=== PATIENT | male | born 1975 | race Caucasian/White ===

== ENCOUNTER → 2019-12-28 10:44 | Outpatient (CLI) | payer OTHER, SELFPAY ==
--- NOTE | 2019-12-28 10:49 | RAD_ITS ---
HISTORY: lumbar strain EXAMINATION/TECHNIQUE: XR Spine Lumbar Min 4 Views: 5 views COMPARISON: None FINDINGS: VERTEBRAE: Preserved vertebral body height. No fracture. No spondylolisthesis. No spondylolysis Degenerative changes of the posterior elements. Preservation of the normal lumbar lordosis. DISCS: Degenerative changes are noted. INCLUDED ABDOMEN: Included bowel gas pattern is non-obstructive. Atherosclerotic vascular disease RAD/L/S Spine Min 4 Views IMPRESSION: Degenerative changes. No acute fracture or spondylolisthesis. No spondylolysis at 0441 Reported and signed by: Charlotte Alexis DO Electronically Signed: Charlotte Alexis DO at 4:40 EDT Tel , Service support ,
== END ==
PROVIDERS: PCP Family Medicine; Referring Provider Family Medicine; Visit Provider Family Medicine
DX: S39.012A Strain of muscle, fascia and tendon of lower back, initial encounter (principal)
CPT/HCPCS: 72110

== ENCOUNTER → 2020-01-20 08:52 | Outpatient (CLI) | payer OTHER, SELFPAY ==
[2020-01-20 10:03] LABS: Absolute Lymphocyte Count 1.66 X10^3/uL (0.83-4.51); Absolute Neutrophil Count 6.8 X10^3/uL (2.0-7.7); Basophil# 0.03 X10^3/uL; Basophil% 0.3 % (0-1); Eosinophil# 0.19 X10^3/uL; Hematocrit 46.8 % (40-54); Hemoglobin 15.2 g/dL (13.0-16.5); Lymphocyte # 1.66 X10^3/ul (4.0); Lymphocyte % 17.7 % (19-41); Mean Corp Hgb Conc 32.5 g/dL (32-36); Mean Corpuscular Hgb 31.1 pg (27.0-32.0); Mean Corpuscular Volume 95.9 fL (80-94); Monocyte# 0.65 X10^3/uL; Monocyte% 6.9 % (0-10); NRBC Flagged by Analyzer 0 % (0-5); Neutrophil % 72.7 % (47-70); Platelet Count 286 K/mm3 (150-450); RBC Distribution Width CV 12.3 % (11.6-14.6); RBC Distribution Width SD 43.4 fl (35.1-43.9); Red Blood Count 4.88 M/mm3 (4.6-6.2); White Blood Count 9.4 K/mm3 (4.4-11.0)
[2020-01-20 10:48] LABS: AST(SGOT) 14 U/L (15-37); Alanine Aminotransfer ALT/SGPT 19 U/L (16-61); Albumin, Serum 3.9 g/dL (3.2-5.0); Alkaline Phosphatase 68 U/L (45-117); Anion Gap 7 (5-15); BUN 9 mg/dL (7-18); BUN/Creat Ratio 8.5 RATIO (10-20); Chloride 105 mmol/L (98-107); Cholesterol 210 mg/dL (200); Creatinine, Serum 1.06 mg/dL (0.70-1.30); EST Glomerular Filtration Rate 80 mL/min (>60); Est Glom Filt Rate - Afr Amer 96 mL/min (>60); Globulin 3.8 g/dL (2.2-4.2); Glucose 96 mg/dL (74-106); High Density Lipoprotein 48 mg/dL; Potassium 4.2 mmol/L (3.5-5.1); Protein, Total 7.7 g/dL (6.4-8.2); Sodium Level 139 mmol/L (136-145); Thyroid Stim Hormone (TSH) 0.98 uIU/mL (0.358-3.74); Triglycerides 107 mg/dL; Very Low Density Lipoprotein 21 mg/dL (5-40)
== END ==
PROVIDERS: PCP Family Medicine; Referring Provider Family Medicine; Visit Provider Family Medicine
DX: F98.8 Other specified behavioral and emotional disorders with onset usually occurring in childhood and adolescence (principal); F17.210 Nicotine dependence, cigarettes, uncomplicated; Z13.220 Encounter for screening for lipoid disorders
CPT/HCPCS: 36415; 80053; 80061; 84443; 85025

== ENCOUNTER 2021-06-01 15:54 | Outpatient (CLI) | payer OTHER, SELFPAY ==
--- NOTE | 2021-06-01 | IMM_PTH ---
PATIENT: ANA THIBODEAUX LOC: [facility] U#:[id number] AGE/SX: 46/M ROOM: RE06/01/[address]: Dr. Sergo Harley MD : 1975 BED: DIS: 06/01/2021 SPEC #: [id number] RECD: 06/05/21 14:05 STATUS: EVI RECali #: [id number] BERNICE: 06/01/21 00:[address]: Sergo Harley DEPT: IMMUNOHISTOCHEMISTRY RECD BY: Christel Del Toro ENTERED: 06/05/21 14:09 SP TYPE: IMMUNO OTHR DR: Dr. Jean Arthur MD Tissues: Skin of neck, NOS Procedures: BCL-2 (add) P53 (add) 34BE12 (add) P40 (add) CD10 (initial) PHYSICIAN & INSTITUTION [place] [phone] SPECIMEN INFORMATION: Tissue Source: Left lateral neck skin lesion Clinical Info: Left lateral neck skin lesion Specimen Number: [id number] CPT code: 12070, 00381 x4 METHODOLOGY: Deparaffinized sections of prefer/formalin-fixed tissue or PAP/DQ stained slides are incubated with monoclonal/polyclonal antibodies/oligonucleotide probes. Localization is made via biotin free immunoperoxidase method. Appropriate controls are performed and reacted as expected. Results on target cell population are indicated in the following table: RESULTS: ANTIBODY / CLONE RESULT CD10 (56C6) negative BCL-2 (bcl-2/100/D5) positive, dim P40 (BC28) positive 34BE12 (34BE12) positive P53 (DO-7) positive, rare These tests were developed and their performance characteristics determined by [facility]. They may not have been cleared or approved by the U.S. Food and Drug Administration. The FDA has determined that such clearance or approval is not necessary. The above immunohistochemical/dualISH markers are ordered and reviewed by the Pathologist. INTERPRETATION: Left lateral neck skin lesion, punch biopsy: Consistent with basosquamous carcinoma. AM:gillian 06/06/2021
--- NOTE | 2021-06-01 14:25 | LES_PTH ---
PATIENT: ANA THIBODEAUX LOC: [facility] U#:[id number] AGE/SX: 46/M ROOM: RE06/01/[address]: Dr. Sergo Harley MD : 1975 BED: DIS: 06/01/2021 SPEC #: [id number] RECD: 06/01/21 15:49 STATUS: EVI BRYAN #: [id number] BERNICE: 06/01/21 14:[address]: Sergo Harley DEPT: SURGICAL PATHOLOGY RECD BY: Twila Corrigan ENTERED: 06/04/21 08:35 SP TYPE: Lesion OTHR DR: Dr. Jean Arthur MD Tissues: Skin of neck, NOS Procedures: Surgery Specimen Level IV HEADER OPERATION: Punch biopsy skin lesion left lateral neck PRE-OP DIAGNOSIS: Left lateral neck skin lesion TISSUE SUBMITTED: Left lateral neck skin lesion MICROSCOPIC DIAGNOSIS Skin lesion left lateral neck, punch biopsy: Consistent with invasive baso-squamous cell carcinoma, ulcerated. See comment. AM:gillian 06/05/2021 COMMENT Immunohistochemistry ([id number]) supports the above diagnosis. Complete excision of lesion is recommended for definitive classification. MICROSCOPIC DESCRIPTION Slides are reviewed. GROSS DESCRIPTION Received in fixative is one container labeled with the patient's name and designated skin lesion biopsy left neck. The specimen consists of a punch biopsy of serrano-white skin measuring 0.5 cm in diameter and 0.4 cm in length. The entire specimen is submitted in one cassette. / SJ:gillian 06/04/2021 TC:0 CPT: 99020
== END 2021-06-01 23:59 | disposition home or self-care (01) ==
LOC: LABSPEC 15:56
PROVIDERS: PCP Family Medicine; Visit Provider Surgery
DX: L98.9 Disorder of the skin and subcutaneous tissue, unspecified (principal)
CPT/HCPCS: 88305; 88341; 88342

== ENCOUNTER 2021-06-18 12:25 | Day surgery (SDC) | payer OTHER, SELFPAY ==
--- NOTE | 2021-06-18 10:52 | HP.PCM_ITS ---
History and Physical Date of Admission: 06/18/21 HISTORY OF PRESENT ILLNESS 46 year old man presents a lesion on his left posterolateral neck that has been increasing in size over the last several months and has become ulcerated. He denies trauma. He denies fever. He denies any drainage from this ulcerated lesion. The lesion was punch biopsied by Dr. Harley on 06/01/21. 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 Patient has a family history of skin cancer. He also has concerns about a small darkly pigmented lesion left cheek since it started to become darkly pigmented. He presents to day for further evaluation and to discuss surgical options for treatment. PAST MEDICAL HISTORY Family history of skin cancer Seasonal allergies Smoker 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 PAST SURGICAL HISTORY History of repair of laceration ALLERGIES No Known Allergies MEDICATIONS ammonium lactate topical cream clonidine dextroamphetamine-amphetamine methylphenidate pravastatin FAMILY HISTORY Father Skin cancer Other Family history of skin cancer Lung cancer SOCIAL HISTORY Smoking Status: Current every day smoker counseling given: provider counseling alcohol intake: never substance use type: does not use REVIEW OF SYSTEMS General - Denies fever, fatigue, and weight loss. Eyes - Denies cataracts and glaucoma. ENT - Denies nasal congestion and sore throat. Endocrine - Denies excessive thirst and urination. Skin - Has ulcerated lesion left posterolateral neck that was recently punch b iopsied on 06/01/21 and showed invasive baso-squamous cell carcinoma, ulcerated. Family history of skin cancer. Has darkly pigmented lesion left cheek. Musculoskeletal - Denies joint pain, joint stiffness, weakness of muscles and joints, back pain, and arthritis. Neuro - Denies headaches. Cardiovascular - Denies chest pain, fatigue, and shortness of breath with exertion. Psych - Denies anxiety and depression. Respiratory - Denies chronic cough and shortness of breath. Patient is a smoker. Gastrointestinal - Denies nausea, vomiting, diarrhea, and constipation. Hematologic - Denies abnormal bruising and bleeding. Genitourinary - Denies hematuria and urinary frequency. PHYSICAL EXAMINATION General - Alert and Oriented. HEENT - PERRL. EOMI. Throat is clear. On his left cheek there is a small darkly pigmented lesion. Measures 2 mm. Lesion is flat. Has regular borders. No ulceration. Lesion is nontender. No other suspicious lesions noted. Neck - Supple and nontender. No cervical adenopathy. On the left posterolateral neck is an ulcerated lesion that measures 2 x 1.3 cm. At his office visit last week on 06/11/21, the size of the lesion was 1.6 cm. There is some nodularity at the edges. Has irregular borders. Lesion is nontender. No other suspicious lesions noted. Lungs - Clear to auscultation. Heart - Regular rate and rhythm. Abdomen - Soft and nondistended. Extremities - FROM. No axillary adenopathy. Radial pulses are palpable. No suspicious lesions noted. Neuro - CN II-XII grossly intact. Psych - Normal mood and affect. ASSESSMENT 1. 2 cm ulcerated baso-squamous cell carcinoma left posterolateral neck. 2. 2 mm darkly pigmented lesion left cheek. 3. Family history of skin cancer. 4. Smoker. PLAN Pathology reviewed. A punch biopsy showed an invasive baso-squamous cell carcinoma, ulcerated. Medical records reviewed. Recommend to the patient to excise this recently diagnosed invasive ulcerated baso-squamous cell carcinoma and send it to Pathology for analysis to rule out carcinoma at the margins. Will excise with a margin of tissue in all directions. Reconstruction will be with a local skin flap versus skin grafting. The ulcerated baso-squamous cell carcinoma was 1.6 cm at his office visit on 06/11/21. On the day of surgery one week later, it had increased to 2 cm. The margin of tissue excised will be 1 cm in all directions. There is a small pigmented lesion on his left cheek that can be excised as well or can be closely monitored because of its small size (2 mm). If he chooses to just watch it, if there any changes to this lesion, then it will be excised at that time. He is thinking about proceeding with having it excised at the same time as the baso-squamous cell carcinoma for peace of mind because there is a family history of skin cancer. He will let me know the day of surgery. Surgery can be done on an outpatient basis under local anesthesia and IV sedation. Patient was informed of the risks and complications of the procedure including alternatives to surgery. These were discussed with the patient personally. Patient voices understanding and wishes to proceed. Some of the risks and complications were included in a form from the [place] [employer] [employer]. Encouraged patient to stop smoking as it may have deleterious effects on wound healing. We discussed the current risks associated with COVID-19. While it is understood that there is a community spread of COVID-19, the risk of don COVID-19 while at [facility] ([facility]) is very low; however, the risk cannot be completely mitigated because of the community spread of the disease. We discussed in detail the risk of exposure to and/or potential harm posed by the COVID-19 virus with having a surgery/procedure at this time versus the risk of delaying the surgery/procedure. It is not possible to know either the risk of delaying the surgery or procedure or chance of getting an infection with perfect accuracy, but a joint decision was made to proceed at this time with the scheduled surgery/procedure as indicated on the consent form. Patient was notif ied that we will need to comply with any screening or testing [facility] wishes to perform or that surgery may be delayed for any positive results. Procedure Criteria Procedure Type: Elective COVID Risk Discussion: The surgeon/proceduralist and patient have discussed in detail the risk of exposure to and/or potential harm posed by the COVID-19 virus with having a surgery/procedure at this time versus the risk of delaying the surgery/procedure. It is not possible to know either the risk of delaying the surgery or procedure or chance of getting an infection with perfect accuracy, but a joint decision was made between the patient and the surgeon/proceduralist to proceed at this time with the scheduled surgery/procedure as indicated on the consent form.
[2021-06-18 13:26] VITALS: BP 130/75; PULSE 68; RESP 16; TEMP 36.7; O2SAT 97; BMI 24.0
[2021-06-18] MEDS: Lactated Ringers 1,000 ML 15 ML IV (13:31)
--- NOTE | 2021-06-18 14:00 | TISS_PTH ---
PATIENT: ANA THIBODEAUX LOC: [facility] U#:[id number] AGE/SX: 46/M ROOM: RE06/18/[address]: Dr. Elian Escalante MD : 1975 BED: DIS: 06/18/2021 SPEC #: [id number] RECD: 06/19/21 08:06 STATUS: EVI RANDI #: [id number] BERNICE: 06/18/21 14:[address]: Elian Escalante DEPT: SURGICAL PATHOLOGY RECD BY: Jeremiah Obrien ENTERED: 06/19/21 08:41 SP TYPE: Tissue Bx ROS DR: Dr. Jean Arthur MD Tissues: TISSUE SURGICALLY REMOVED Procedures: Surgery Specimen Level IV HEADER OPERATION: Excision ulcerated basosquamous cell cancer posterolateral PRE-OP DIAGNOSIS: 1.6 cm ulcerated basosquamous cell cancer TISSUE SUBMITTED: Left neck ulcerated basosquamous cell cancer, suture at 12 o?clock MICROSCOPIC DIAGNOSIS Left neck ulcerated basosquamous cell cancer, excisional biopsy: Basal cell carcinoma with focal area of ulceration, completely excised. See comment. SJ:gillian 06/20/2021 COMMENT The tumor measures up to 1.4 cm in greatest width. Please make reference to previous specimen ([id number]) skin lesion, left lateral neck, punch biopsy with diagnosis of ?consistent with invasive basosquamous cell carcinoma, ulcerated.? Case has been reviewed in consultation with Dr. Ortiz who concurs with the above diagnosis. IDC:AM MICROSCOPIC DESCRIPTION Slides are reviewed. GROSS DESCRIPTION Received in fixative is one container labeled with the patient's name and designated left neck ulcerated basosquamous cell cancer, suture at 12 o'clock. The specimen consists of a rosita-shaped piece of serrano-light brown skin measuring 3.7 x 3.5 cm and up to 0.5 cm in thickness. The specimen is inked as follows: 12 to 3 o'clock - green, 3 to 6 o'clock - blue, 6 to 9 o'clock - black, 9 to 12 o'clock - yellow and deep margin - red. The skin surface shows an ulcerated lesion measuring 1 cm in greatest dimension. The specimen is serially sectioned and submitted entirely in four cassettes. / ETELVINA:gillian 06/19/2021 TC:0 CPT: 25274
[2021-06-18] MEDS: Clindamycin 900 MG/50 ML BAG 75 MG IV (15:55)
[2021-06-18] MEDS: Lidocaine 1% /Epi 1:100 (20ml) 20 ML Vial (16:45)
[2021-06-18] MEDS: Mupirocin Ointment 22gm Tube 1 APPLIC (16:57)
--- NOTE | 2021-06-18 17:18 | OP.PCM_ITS ---
Problems Associated Problem List Diagnoses (1) 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: (2) Family history of skin cancer: (3) Smoker: Report of Operation Date of Procedure: 06/18/21 Pre-Operative Diagnosis: 1. 2 cm ulcerated baso-squamous cell carcinoma left posterolateral neck. 2. 2 mm darkly pigmented lesion left cheek. 3. Family history of skin cancer. 4. Smoker. Post-Operative Diagnosis: Same. 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 Description of Surgical Findings:: 46 year old man presents a lesion on his left posterolateral neck that has been increasing in size over the last several months and has become ulcerated. He denies trauma. He denies fever. He denies any drainage from this ulcerated lesion. The lesion was punch biopsied by Dr. Harley on 06/01/21. 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 Patient has a family history of skin cancer. He also has concerns about a small darkly pigmented lesion left cheek since it started to become darkly pigmented. He presents to day to discuss surgical options for treatment. Patient was informed of the risks and complications of the procedure including alternatives to surgery. These were discussed with the patient personally. Patient voices understanding and wishes to proceed. Some of the risks and complications were included in a form from the [employer]. Encouraged patient to stop smoking as it may have deleterious effects on wound healing. Patient wants to continue observation of the small pigmented lesion left cheek. Patient states he has had blackheads that looked like the lesion in the past. 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 However, I stressed to the patient that any changes that occur in this lesion and we would proceed to the operating room for excision of this changing pigmented lesion and send it to Pathology for analysis to rule out carcinoma. Patient voices understanding. Surgeon: Elian Escalante hospice superintendent: Terri العراقي Type of Anesthesia: General Specimen's removed: Ulcerated baso-squamous cell carcinoma left posterolateral neck to Pathology. Drains: None. Estimated Blood Loss (mL): 10. Description of Procedure: Patient was taken to OR in supine position and was placed under general anesthesia. The left face and left neck areas were prepped and draped in the usual fashion. SCD's were placed for DVT prophylaxis. Perioperative antibiotics were given intravenously. Using xylocaine with epinephrine, the lesion was infiltrated. After waiting 5 minutes for the anesthetic to take effect, the ulcerated baso-squamous cell carcinoma left post erolateral neck was excised in a rhomboid fashion down into the subcutaneous tissue at the level of the underlying muscle. A suture was marked at 12 oclock position for pathology orientation. The lesion was then sent to Pathology for analysis to rule out carcinoma at the margins. The carcinoma was 2 cm and ulcerated, so I used a 1 cm margin in all directions thus making it a 4 cm excision. I designed a rhomboid flap anterior and inferior to the wound defect. Incisions were made and the rhomboid flap was elevated on a subcutaneous pedicle down to the muscle. The flap was transposed into the defect with minimal tension and minimal distortion. Hemostasis was obtained with electrocautery. After transposing the flap into the defect, I closed the flap in a layered fashion with 5-0 Monocryl for the deep dermis and subcutaneous tissue. The skin was approximated with 4-0 Prolene simple interrupted sutures. Antibiotic ointment was applied to the suture line followed by a 4x[address] meka. Patient tolerated the procedure well and was sent to PACU in satisfactory condition. Patient will be sent home on antibiotics and pain medication. He will keep his head elevated during the initial postoperative period. Patient will followup in a week for a wound check and for discussion of the pathology report. Will remove half the sutures from the incision at that first visit and will remove the remaining sutures at the next 1-2 visits. Grafts/Implants Used: None. Complications None. Admit VTE Documentation VTE Present on Admission: No VTE Mechan Device Prophylaxis: SCD's VTE Pharm Prophylaxis ordered?: No Addendum Addendum: Surgery Charges CPT - 22600 ICD-10 - C44.42, D49.2, Z80.8, F17.200
[2021-06-18 17:24] VITALS: BP 117/80; BP 130/75; PULSE 76; RESP 14; TEMP 36.9; O2SAT 93
[2021-06-18 17:30] VITALS: BP 128/84; BP 130/75; PULSE 81; RESP 14; O2SAT 94
[2021-06-18 17:45] VITALS: BP 130/75; BP 132/85; PULSE 76; RESP 16; O2SAT 92
--- NOTE | 2021-06-18 17:47 | PCM.DC ---
Discharge Instructions Diet Discharge Diet: No restrictions Activity Discharge Activity: May Drive (when not taking pain medication.), May Shower (in 2 days.) and - (keep head elevated. 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 Keep extremity elevated above heart level: - (elevate head.) Dressing / Incision Call your doctor if your incision/area has: Continuous Slow Oozing, Sudden Increased Bleeding, Increased Pain/ Swelling, Foul Smelling Discharge and Swelling at the incision site Call your doctor if you observe: Fever of 101 or Higher, Coldness, Increased Pain, Shortness of breath, Chest pain, Calf discomfort and Uncontrolled pain Suture Line Care: - (apply antibiotic ointment to the suture lines daily.) Change Dressing in: 2 days Cleanse incision/area with: - (may get incisions wet in the shower in 2 days.) Follow Up Care Please Follow Up With: Elian Escalante MD When: one week 06/26/21. calll [phone] for appt. Test Results: Test results from this visit will be discussed in further detail at your follow-up appointment, if applicable. Discharge Plan Admission Primary Reason for Your Visit: excision ulcerated baso-squamous cell carcinoma left posterolateral neck Attending Provider: Elian Escalante Primary Care Provider: Jean Arthur Discharge Orders/Prescriptions Prescriptions: New clindamycin HCl [Cleocin HCl] 300 mg capsule 300 mg PO TID Qty: 12 RF: 0 oxycodone-acetaminophen [Percocet] 5-325 mg tablet 1 tab PO Q6H PRN (Reason: pain (scale score 7-10)) 7 Days Qty: 28 RF: 0 Continued dextroamphetamine-amphetamine 25 mg capsule,extended release 24hr 25 cap PO DAILY RF: 0 pravastatin 40 mg tablet 40 mg PO QHS RF: 0 clonidine HCl 0.2 mg tablet 0.2 mg PO DAILY RF: 0 Referrals / Follow Up: Jean Arthur MD [Primary Care Provider] - Disposition Disposition (needs filled in before D/C Order can be placed): Home, Self Care
[2021-06-18 18:01] VITALS: BP 130/75; BP 140/99; PULSE 81; RESP 16; TEMP 36.9; O2SAT 95
[2021-06-18 18:43] VITALS: BP 130/75; BP 137/88; PULSE 79; RESP 16; TEMP 36.8; O2SAT 93
== END 2021-06-18 23:59 | disposition home or self-care (01) ==
LOC: SDC 12:27 → AC 12:27
PROVIDERS: PCP Family Medicine; Referring Provider Surgery; Visit Provider Surgery
PROC: (CPT 14301; principal; 2021-06-18 13:45)
DX: C44.42 Squamous cell carcinoma of skin of scalp and neck (principal); F17.200 Nicotine dependence, unspecified, uncomplicated; L81.9 Disorder of pigmentation, unspecified; F98.8 Other specified behavioral and emotional disorders with onset usually occurring in childhood and adolescence; E78.00 Pure hypercholesterolemia, unspecified; Z79.899 Other long term (current) drug therapy
CPT/HCPCS: 14301; 00300; 87426; 88305; C9803; J7120; J2405

== ENCOUNTER 2024-12-24 19:02 | Emergency (ER) | payer OTHER, SELFPAY ==
[2024-12-24 19:03] VITALS: BP 153/96; PULSE 110; RESP 18; TEMP 36.6; O2SAT 98; BMI 29.6
[2024-12-24 21:23] VITALS: BP 147/81; PULSE 94; RESP 16; O2SAT 94
--- NOTE | 2024-12-24 21:54 | EDS_ITS ---
HPI History of Present Illness Chief Complaint: Back Detail of Chief Complaint: I feel like I am coming down with a virus Informant: patient Onset/Context/Timing Onset: Today and Yesterday Context: Gradual Onset Timing: Continuous Quality: Dull and Aching Current Severity: Mild Maximum Severity: Mild Worsened by: improves with Nothing Relieved by: Nothing Associated Symptoms Associated Symptoms: Negative for Numbness, Tingling, Radiation to Right Leg, Radiation to Left Leg, Fever, Abdominal Pain, Dysuria, Unable to Ambulate, Unable to Transfer, Urinary Retention, Urinary Incontinence, Constipation or Fecal Incontinence Narrative Narrative: 49-year-old male no significant past medical history. Says he feels like he is coming down with something. He says and felt great the last day or so. He has had diffuse back pain. Denies any fall or trauma. No prior back history or surgery. His primary in his lumbar spine across his iliac crest. No radiation to his legs. No bowel or bladder retention or incontinence. No weakness or numbness in his lower extremities. 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 Seasonal allergies Home Medications ?Medication ?Instructions ?Recorded ?Last Taken ?Type dextroamphetamine-amphetamine 20 20 mg PO BID 12/24/24 Unknown History mg tablet (Adderall) Allergy/AdvReac Type Severity Reaction Status Date / Time No Known Allergies Allergy Verified 12/24/24 19:03 Family History Father Skin cancer Other Family history of skin cancer Lung cancer Surgical History History of repair of laceration Social History Smoking Status: Current every day smoker tobacco type: cigarettes alcohol intake: never substance use type: does not use additional social history: Does Take Aspirin As Needed Does Take Ibuprofen As Needed ROS ROS ED ROS Narrative Back pain. Denies recent illness. No fever. No chills. Constitutional Constitutional ED: Denies chills or fever(s) Eyes Eyes: Denies blurry vision ENT ENT ED: Denies ear pain Cardiovascular Cardiovascular: Denies chest pain Respiratory/Chest Respiratory/Chest: Denies dyspnea or dyspnea on exertion Gastrointestinal Gastrointestinal: Denies abdominal pain, constipation, diarrhea, melena, nausea or vomiting Genitourinary Genitourinary ED: Denies dysuria or hematuria Musculoskeletal Musculoskeletal: Reports back pain and myalgias; Denies arthralgias or neck pain Integumentary Denies abscess Neurologic Neurologic: Denies headache(s) Psychiatric Psychiatric: Denies anxiety or depression Endocrine Endocrinology: Denies cold intolerance Hematologic/Lymphatic Hematologic/Lymphatic: Denies easy bleeding, easy bruising or lymphadenopathy Allergic/Immunologic Allergic/Immunologic ED: Denies mouth swelling, tongue swelling or urticaria EXAM Physical Exam Narrative Exam Narrative: 29-year-old male vital signs stable afebrile no acute distress. Sitting upright in bed. Family at bedside. H EENT exam pupils round react to light. Moist with membranes. Posterior pharynx normal. Neck nontender no meningismus no lymphadenopathy. Able to flex chin to chest. Back no specific tenderness. No redness or warmth. No bruising or signs of trauma. No specific spine tenderness. Lungs clear to auscultation bilaterally. Heart regular rhythm rate about 90 no murmur. Chest wall ribs nontender. Abdomen soft nontender. No peritoneal signs. Moving all 4 extremities. 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 Full flexion extension today difficulty normal range of motion of both lower extremities he can lift either leg without any problem. No cauda equina. No saddle anesthesia. Negative straight leg raise. Neurologic exam normal. No sensory loss. No motor loss. Normal strength. Const Vital Signs: 12/24/24 19:03 12/24/24 21:23 Temperature 97.8 F Temperature Source Temporal Pulse Rate 110 H 94 Respiratory Rate 18 16 Blood Pressure 153/96 H 147/81 H Blood Pressure Mean 115 103 Pulse Ox 98 94 Oxygen Delivery Method Room Air Room Air Positive well nourished and well developed; Negative for obese, cachectic, contractures or unkempt General Appearance ED: well developed and NAD; Negative for unkempt, cachectic, contractures or pallor Nutritional Appearance: Negative for cachectic or obese HEENT Reports moist mucous membranes Negative for trauma or tenderness Eyes PERRL and EOMs intact bilaterally Neck no lymphadenopathy, supple and no JVD Resp normal respiratory effort and clear to auscultation bilaterally Cardio regular rate, regular rhythm, S1 normal heart sound, S2 normal heart sound and no murmurs GI normal to inspection, nondistended, normoactive bowel sounds, soft to palpation, non-tender, non-distended and no masses Palpation: Negative for tender, guarding, mass, pulsatile mass or rebound tenderness present Back/Spine normal to inspection and no thoracic nor lumbar tenderness General Back: Negative for CVA tenderness Cervical Spine: Negative for cervical spine tenderness and Negative for paracervical muscle tenderness Thoracic Spine / Upper Back: Negative for paraspinal muscle tenderness Lumbar Spine / Lower Back: Negative for ROM limited Extremity normal to inspection and no clubbing, cyanosis or edema Extremity Narrative: Normal strength. Normal sensation. No cauda equina. Negative straight leg raise. Normal range of motion. General Extremety ED: Negative for edema, tenderness or other findings General Extremity: Negative for edema or other findings Neuro oriented x3 and no sensory deficits noted Sensorium / Orientation: alert; Negative for confused, lethargic or stuporous Motor Exam: strength 5/5 throughout Psych mental status grossly normal Appearance: Negative for unkempt Skin no rashes or lesions noted and no wounds General Skin Exam: Negative for jaundice or pallor Lesions: No lesion noted Rashes: No rashes noted Trauma: Negative for abrasion or puncture Wounds: Negative for wounds noted MDM MDM MDM Narrative Medical decision making narrative: 49-year-old male has back pain. He musculoskeletal. He may be coming down with a virus states this feels like he is getting ill. There is no signs of cauda equina. He had no trauma. He has got a completely normal exam with normal strength and sensation. And only needs any imaging of his back. I do not think lab work would be of benefit. We treated with IM Toradol discharged on Motrin and Tylenol and follow-up with primary care physician if not improving or return if he has worsening symptoms. History & Record Review Discussion w/independent historian: Patient and Family Additional record(s) reviewed:: Prior inpatient record, Prior outpatient record, Prior ED visit and Prior labs Discharge Plan Triage Chief Complaint: Back ED Provider: Isael Schultz Dx/Rx/DC Orders Clinical Impression: Back pain, Viral syndrome Instructions: ED Back Pain (Acute or Chronic), ED Viral Syndrome (Adult) Prescriptions: No Action dextroamphetamine-amphetamine [Adderall] 20 mg tablet 20 mg PO BID Rx Instructions: administer doses at least 4-6 hours apart Primary Care Provider: Jean Arthur Referrals: Jean Arthur MD [Primary Care Provider, Family Practice] - 3-5 Days if not improving Activity Restrictions/Additional Instructions: Plenty of fluids and rest. Motrin and Tylenol for pain. Hot shower, warm bath and massage. Follow-up with your doctor if not improving. Return to the emergency department if you get weakness in your legs or incontinence of bowel or bladder. Print Language: Uzbek Disposition Disposition: Home, Self Care
[2024-12-24 22:07] VITALS: BP 153/89; PULSE 95; RESP 16; TEMP 36.7; O2SAT 98
--- OUTSIDE RECORDS SUMMARY | 2024-12-24 22:13 | XMS RPT_ITS | CCD ---
Author Organization [facility] Care Team Providers Care Sales Associate Cashier Name Role Phone TRAY REESE Unavailable Unavailable TRAY REESE ([place]) Unavailable Unavailable TRAY REESE ([place]) Unavailable Unavailable Dr. Cayla Arthur Primary Care Provider Dr. Cayla Arthur Referring Provider Dr. Sergo Harley Attending Provider [phone] Dr. Bernabe Escalante Attending Provider Cayla Arthur MD Primary Care Provider CAYLA ARTHUR Primary Care Unavailable JANN GARY Referring Unavailable CAYLA ARTHUR Primary Care Unavailable Medications Current Medications Medication Drug Class(es) Dates Sig (Normalized) Sig (Original) acetaminophen 325 mg / oxyCODONE hydrochloride 5 mg oral tablet (1 source) Opioid Agonist Start: 06-18-2021 take 1 tablet by mouth every six hours Oxycodone-Acetam inophen (Percocet) 5-325 mg tablet Active 1 TABLET PO EVERY 6 HOURS 28 7 June 18, 2021 6:02pm 28 tabs (twenty-eight) 24 hr amphetamine aspartate 6.25 mg / amphetamine sulfate 6.25 mg / dextroamphetamine saccharate 6.25 mg / dextroamphetamine sulfate 6.25 mg extended release oral capsule (1 source) Central Nervous System Stimulant Start: 06-01-2021 take 1 capsule by mouth once daily Dextroamphetamin e-Amphetamine Active 25 CAP PO DAILY June 01, 2021 3:09pm clindamycin 300 mg oral capsule (1 source) Lincosamide Antibacterial Start: 06-18-2021 take 1 capsule by mouth three times daily Clindamycin Hcl (Cleocin Hcl) 300 mg capsule Active 300 MG PO THREE TIMES A DAY June 18, 2021 6:02pm cloNIDine hydrochloride 0.2 mg oral tablet (1 source) Central alpha-2 Adrenergic Agonist Start: 06-01-2021 take 0.2 mg by mouth once daily Clonidine Hcl Active 0.2 MG PO DAILY June 01, 2021 3:14pm pravastatin sodium 40 mg oral tablet (1 source) HMG-CoA Reductase Inhibitor Start: 06-01-2021 take 40 mg by mouth at bedtime Pravastatin Active 40 MG PO AT BEDTIME June 01, 2021 3:13pm Problems Active Problems Problem Classification Problem Date Documented Date Episodic/Chronic Other nervous system disorders (1 source) Acute postoperative pain; Translations: [Other acute postprocedural pain] Episodic Other non-epithelial cancer of skin (3 sources) Malignant epithelial neoplasm; Translations: [Other specified malignant neoplasm of skin, unspecified] Episodic Other screening for suspected conditions (not mental disorders or infectious disease) (3 sources) Patient encounter status; Translations: [Encounter for screening, unspecified] Onset: 02-13-2024 02-13-2024 Episodic Other skin disorders (1 source) Skin lesion; Translations: [Disorder of the skin and subcutaneous tissue, unspecified] Episodic Other skin disorders (1 source) Disorder of the skin and subcutaneous tissue, unspecified; Translations: [Unspecified disorder of skin and subcutaneous tissue] Episodic Other upper respiratory disease (1 source) Seasonal allergy; Translations: [Other seasonal allergic rhinitis] Chronic Residual codes; unclassified (1 source) Family history of malignant neoplasm of skin; Translations: [Family history of malignant neoplasm of other organs or systems] Episodic Residual codes; unclassified (1 source) Family history of malignant neoplasm of other organs or systems; Translations: [Family history of other specified malignant neoplasm] Episodic Substance-related disorders (2 sources) Smoker; Translations: [Nicotine dependence, unspecified, uncomplicated] Chronic Past or Other Problems Problem Classification Problem Date Documented Da te Episodic/Chronic Headache, including migraine (1 source) Headache; Translations: [Headache] Onset: 04-01-2017 Episodic Sprains and strains (1 source) Strain of muscle, fascia and tendon at neck level, initial encounter; Translations: [Strain of muscle, fascia and tendon at neck level, initial encounter] Onset: 04-01-2017 Episodic Superficial injury; contusion (3 sources) Contusion of unspecified part of head, initial encounter; Translations: [Contusion of right shoulder, initial encounter] Onset: 04-01-2017 Episodic Results Test Name Value Interpretation Reference Range Facility Lipid 1996 panelon 4 Cholesterol [Mass/Vol] 236 mg/dL High <200 [facility] Comment on above: Order Comment: Julia boland Type: BLOOD SPECIMEN Ordering Facility: [facility] Address: [address] [place] [address] Result Comment: <200 mg/dL, Desirable 200-239 mg/dL, Borderline high >239 mg/dL, High Performed By: #### 2 4331-1 #### [facility] CLIA [id number] [address] [place] [address] [place] Cholesterol in HDL [Mass/Vol] 44 mg/dL Normal >39 [facility] Comment on above: Order Comment: Julia boland Type: BLOOD SPECIMEN Ordering Facility: [facility] Address: [address] [place] [address] Result Comment: 40-5 9 mg/dL, Acceptable >59 mg/dL, High: Negative risk factor for coronary heart disease <40 mg/dL, Low: Positive risk factor for coronary heart disease Performed By: #### 2 4331-1 #### [facility] CLIA [id number] [address] [place] [address] [place] Cholesterol in LDL [Mass/Vol] 165 mg/dL High <100 [facility] Comment on above: Order Comment: Aprili men Type: BLOOD SPECIMEN Ordering Facility: [facility] Address: [address] [place] [address] Result Comment: <100 mg/dL, Optimal 100-129 mg/dL, Near optimal/above optimal 130-159 mg/dL, Borderline high 160-189 mg/dL, High >189 mg/dL, Very high Secondary prevention optimal LDL Cholesterol levels are recommended to be < 70 mg/dL Performed By: #### 2 4331-1 #### [facility] CLIA [id number] [address] [id number] [address] [place] Cholesterol in LDL/Cholesterol in HDL [Mass ratio] 3.75 {ratio} High <2.54 [facility] Comment on above: Order Comment: Julia boland Type: BLOOD SPECIMEN Ordering Facility: [facility] Address: [address] [place] [address] Result Comment: Refe destineyce: 1. National Cholesterol Education Program ATP III Guideline At-A-Glance Quick Desk Reference: National Heart, Lung, and Blood [place]. National Institutes of Health. 2001: NIH Publication No. 01-3305. 2. An International Atherosclerosis Society position paper: global recommendations for the management of dyslipidemia: executive summary, Atherosclerosis. 2014: 232(2):410-413. Performed By: #### 2 4331-1 #### [facility] CLIA [id number] [address] [place] [address] [place] Cholesterol in VLDL [Mass/Vol] 27 mg/dL Normal <30 [facility] Comment on above: Order Comment: Julia boland Type: BLOOD SPECIMEN Ordering Facility: [facility] Address: [address] [place] [address] Performed By: #### 2 4331-1 #### [facility] CLIA [id number] [address] [place] [address] [place] Cholesterol non HDL [Mass/Vol] 192 mg/dL High <130 [facility] Comment on above: Order Comment: Julia boland Type: BLOOD SPECIMEN Ordering Facility: [facility] Address: [address] [place] [address] Result Comment: <130 mg/dL, Optimal 130-159 mg/dL, Near optimal/above optimal 160-189 mg/dL, Borderline high 190-219 mg/dL, High >219 mg/dL, Very high Secondary prevention optimal non HDL Cholesterol levels are recommended to be <100 mg/dL Performed By: #### 2 4331-1 #### [facility] CLIA [id number] [facility] [place] [address] [place] Cholesterol.total/Ch olesterol in HDL [Mass ratio] 5.36 {ratio} High <5.10 [facility] Comment on above: Order Comment: Julia boland Type: BLOOD SPECIMEN Ordering Facility: [facility] Address: [address] [place] [address] Performed By: #### 2 4331-1 #### [facility] CLIA [id number] [address] [place] [address] FASTING TIME 12 hrs Normal [facility] Comment on above: Order Comment: Aprili men Type: BLOOD SPECIMEN Ordering Facility: [facility] Address: [address] [place] [address] Performed By: #### 2 4331-1 #### [facility] CLIA [id number] [address] [place] [address] Triglyceride [Mass/Vol] 133 mg/dL Normal <150 [facility] Comment on above: Order Comment: Julia boland Type: BLOOD SPECIMEN Ordering Facility: [facility] Address: [address] [place] [address] Result Comment: <150 mg/dL, Normal 150-199 mg/dL, Borderline high 200-499 mg/dL, High >499 mg/dL, Very high Performed By: #### 2 4331-1 #### [facility] CLIA [id number] [address] [place] [address] OF [facility] XR CHEST 2V FRONTAL/LATon XR CHEST 2V FRONTAL/LAT * * *Final Report* * * DATE OF EXAM: Feb 13 2024 9:13AM RNX [id number] - XR CHEST 2V FRONTAL/LAT / PROCEDURE REASON: Screening for condition * * * * Physician Interpretation * * * * EXAMINATION: CHEST RADIOGRAPH (2 VIEW FRONTAL and LATERAL) CLINICAL HISTORY: Screening for condition MQ: XC2_6 EXAM DATE/TIME: 02/13/2024 9:13 AM COMPARISON: 06/07/2015 RESULT: Lines, tubes, and devices: None. Lungs and pleura: No consolidation. No lung mass. No pleural effusion. No pneumothorax. Cardiomediastinal silhouette: Normal cardiomediastinal silhouette. Bones and soft tissues: Unremarkable. IMPRESSION: No acute radiographic abnormality. [employer] Salt: RICARDO Transcribe Date/Time: Feb 13 2024 10:03A Dictated by : TONIE DELEON MD This examination was interpreted and the report reviewed and electronically signed by: TONIE DELEON MD on Feb 13 2024 10:03AM EST [id number] Normal [facility] XR Chest PA and Lateralon IMPRESSION: No acute radiographic abnormality. [employer] Salt: [facility] Transcribe Date/Time: Feb 13 2024 10:03A Dictated by : TONIE DELEON MD This examination was interpreted and the report reviewed and electronically signed by: TONIE DELEON MD on Feb 13 2024 10:03AM [facility] RAD[facility]OLOG[facility] * * *Final Report* * * DATE OF EXAM: Feb 13 2024 9:13AM RNX [id number] - XR CHEST 2V FRONTAL/LAT / PROCEDURE REASON: Screening for condition * * * * Physician Interpretation * * * * EXAMINATION: CHEST RADIOGRAPH (2 VIEW FRONTAL & LATERAL) CLINICAL HISTORY: Screening for condition MQ: XC2_6 EXAM DATE/TIME: 02/13/2024 9:13 AM COMPARISON: 06/07/2015 RESULT: Lines, tubes, and devices: None. Lungs and pleura: No consolidation. No lung mass. No pleural effusion. No pneumothorax. Cardiomediastinal silhouette: Normal cardiomediastinal silhouette. Bones and soft tissues: Unremarkable. [facility] RAD[facility] Provider, Kristal Edward Garcia - 02/13/2024 * * *Final Report* * * DATE OF EXAM: Feb 13 2024 9:13AM RNX [id number] - XR CHEST 2V FRONTAL/LAT / PROCEDURE REASON: Screening for condition * * * * Physician Interpretation * * * * EXAMINATION: CHEST RADIOGRAPH (2 VIEW FRONTAL & LATERAL) CLINICAL HISTORY: Screening for condition MQ: XC2_6 EXAM DATE/TIME: 02/13/2024 9:13 AM COMPARISON: 06/07/2015 RESULT: Lines, tubes, and devices: None. Lungs and pleura: No consolidation. No lung mass. No pleural effusion. No pneumothorax. Cardiomediastinal silhouette: Normal cardiomediastinal silhouette. Bones and soft tissues: Unremarkable. IMPRESSION IMPRESSION: No acute radiographic abnormality. [employer] Salt: RICARDO Transcribe Date/Time: Feb 13 2024 10:03A Dictated by : TONIE DELEON MD This examination was interpreted and the report reviewed and electronically signed by: TONIE DELEON MD on Feb 13 2024 10:03AM EST [facility] Radiology Study observation (narrative) [facility] XR Chest PA and LateralOrder ed By: [facility] Provider on 02-13-2024 [facility] Plastic Surgery Visit Report on 07-10-2021 Plastic Surgery Visit Report [facility] Plastic Reconstructive Surgery [address] [facility] [address] [place] [address] OFFICE VISIT Date of Service: 07/10/21 MR#: [id number] Acct: [id number] Name: ANA THIBODEAUX Rep #: [id number] : 1975 Provider: VICTORIA connell Age/Sex: 46/M Location: [facility] Status: Signed Intake Vital Signs 07/10/21 09:29 Respiration 16 Pulse 82 Pulse Source Monitor Temp 98.2 F Temp Source Temporal Pulse Oximetry (%) 97 Oxygen Delivery Method room air Intake Visit Reasons: postop surgery 06/18/21 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 Accompanied by: None Is patient in pain?: No Allergies No Known Allergies Allergy (Verified 07/10/21 09:30) Medications clonidine HCl 0.2 mg tablet 0.2 mg PO DAILY tab 06/01/21 [History Confirmed 07/10/21] dextroamphetamine-amph etamine ER 25 mg 24hr capsule,extend release 25 cap PO DAILY cap 06/01/21 [History Confirmed 07/10/21] pravastatin 40 mg tablet 40 mg PO QHS tab 06/01/21 [History Confirmed 07/10/21] oxycodone-acetaminophe n [Percocet] 1 tab PO Q6H PRN 7 Days #28 tab 06/18/21 [Rx Confirmed 07/10/21] [facility] Medical History Attention deficit disorder (ADD) Family history of skin cancer High cholesterol History of stress test Neoplasm of skin of left cheek Seasonal allergies Smoker 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 Wears glasses Surgical History History of repair of laceration Family History Father Skin cancer Other Family history of skin cancer Lung cancer Social History Smoking Status: Current every day smoker tobacco type: cigarettes counseling given: provider counseling alcohol intake: never substance use type: does not use additional social history: Does Take Aspirin As Needed Does Take Ibuprofen As Needed HPI postop surgery 06/18/21 Details: Postop visit from his recent surgery on 06/18/21 where he underwent excision 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 Patient denies any issues. On exam, the incision is dry and intact and healing well. Pathology showed Basal cell carcinoma with focal area of ulceration, completely excised. Instructed to massage 1-2 times a day to help soften scarring. If his collar rubs against the scarring, he may want to cover it for work. It was recommended to the patient to use sunscreen when outside to help minimize darkening of the healing scars. Encouraged to wear large brimmed hats when out in the sun, along with the sunscreen. He has returned to work without any difficulties. He is to follow up in 6 months for a skin check, now that he has a history of skin cancer. He would like his PCP, Dr. Arthur to do his skin checks. Coding Level of Care Code Global Post Op Diagnoses Neoplasm of skin of left cheek D49.2 Skin lesion of neck L98.9 Basal cell carcinoma of left side of neck C44.41 Family history of skin cancer Z80.8 Assessment and Plan (No Qualifiers) Assessment and Plan (1) Neoplasm of skin of left cheek: Status: Chronic Comment: 2 mm pigmented lesion left cheek (2) Skin lesion of neck: Status: Acute (3) Basal cell carcinoma of left side of neck: Status: Acute Comment: Excised 06/18/21 (4) Family history of skin cancer: Status: Chronic 07/10/21 1055 > Date Michelle Ayon Signature: Date (if applicable) CC: Dr. Cayla Arthur MD Normal [facility] Plastic Surgery Visit Report on 07-03-2021 Plastic Surgery Visit Report [facility] Plastic Reconstructive Surgery [address] [facility] [address] [place] [address] OFFICE VISIT Date of Service: 07/03/21 MR#: [id number] Acct: [id number] Name: ANA THIBODEAUX Rep #: [id number] : 1975 Provider: VICTORIA connell Age/Sex: 46/M Location: [facility] Status: Signed Intake Vital Signs 07/03/21 09:09 Respiration 16 Pulse 86 Pulse Source Monitor Temp 97.6 F L Temp Source Temporal Pulse Oximetry (%) 94 Oxygen Delivery Method room air Intake Visit Reasons: postop surgery 06/18/21 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 Accompanied by: None Is patient in pain?: No Allergies No Known Allergies Allergy (Verified 07/03/21 09:10) Medications clonidine HCl 0.2 mg tablet 0.2 mg PO DAILY tab 06/01/21 [History Confirmed 07/03/21] dextroamphetamine-amph etamine ER 25 mg 24hr capsule,extend release 25 cap PO DAILY cap 06/01/21 [History Confirmed 07/03/21] pravastatin 40 mg tablet 40 mg PO QHS tab 06/01/21 [History Confirmed 07/03/21] oxycodone-acetaminophe n [Percocet] 1 tab PO Q6H PRN 7 Days #28 tab 06/18/21 [Rx Confirmed 07/03/21] [facility] Medical History Attention deficit disorder (ADD) Family history of skin cancer High cholesterol History of stress test Neoplasm of skin of left cheek Seasonal allergies Smoker 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 Wears glasses Surgical History History of repair of laceration Family History Father Skin cancer Other Family history of skin cancer Lung cancer Social History Smoking Status: Current every day smoker tobacco type: cigarettes counseling given: provider counseling alcohol intake: never substance use type: does not use additional social history: Does Take Aspirin As Needed Does Take Ibuprofen As Needed HPI postop surgery 06/18/21 Details: Postop visit from his recent surgery on 06/18/21 where he underwent excision 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 Patient denies any pain. On exam, the incision is dry and intact. There is some scabbing that is present. Remaining sutures removed without difficulty. Removed some of the scabbing that was loose. Patient keeps the incision covered while at work to prevent his clothes rub against the incision. Pathology showed Basal cell carcinoma with focal area of ulceration, completely excised. Keep head elevated. Continue to place antibiotic ointment daily for 2 more days onto the incision line. Cover with gauze to prevent clothes collars from rubbing. Keep covered while working. Cover with gauze, not a thick pad that would hold in moisture/perspiration to prevent maceration of the incision. He has returned to work without any difficulties. Follow up one week to evaluate the scabbing in the incision. Coding Level of Care Code Global Post Op Diagnoses Neoplasm of skin of left cheek D49.2 Basal cell carcinoma of left side of neck C44.41 Skin lesion of neck L98.9 Family history of skin cancer Z80.8 Smoker F17.200 Assessment and Plan (No Qualifiers) Assessment and Plan (1) Neoplasm of skin of left cheek: Status: Chronic Comment: 2 mm pigmented lesion left cheek (2) Basal cell carcinoma of left side of neck: Status: Acute Comment: Excised 06/18/21 (3) Skin lesion of neck: Status: Acute (4) Family history of skin cancer: Status: Chronic (5) Smoker: Status: Chronic 07/03/21 1108 > Date Michelle Ayon Signature: Date (if applicable) CC: Normal [facility] Plastic Surgery Visit Report on 06-26-2021 Plastic Surgery Visit Report [facility] Plastic Reconstructive Surgery [address] [facility] [address] [place] [address] OFFICE VISIT Date of Service: 06/26/21 MR#: [id number] Acct: [id number] Name: ANA THIBODEAUX Rep #: [id number] : 1975 Provider: VICTORIA connell Age/Sex: 46/M Location: [facility] Status: Signed Intake Vital Signs 06/26/21 14:52 Respiration 16 Pulse 84 Pulse Source Monitor Temp 98.8 F Temp Source Temporal Pulse Oximetry (%) 95 Oxygen Delivery Method room air Intake Visit Reasons: postop surgery 06/18/21 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 Accompanied by: None Is patient in pain?: No Allergies No Known Allergies Allergy (Verified 06/26/21 14:52) Medications clonidine HCl 0.2 mg tablet 0.2 mg PO DAILY tab 06/01/21 [History Confirmed 06/26/21] dextroamphetamine-amph etamine ER 25 mg 24hr capsule,extend release 25 cap PO DAILY cap 06/01/21 [History Confirmed 06/26/21] pravastatin 40 mg tablet 40 mg PO QHS tab 06/01/21 [History Confirmed 06/26/21] oxycodone-acetaminophe n [Percocet] 1 tab PO Q6H PRN 7 Days #28 tab 06/18/21 [Rx Confirmed 06/26/21] [facility] Medical History Attention deficit disorder (ADD) Family history of skin cancer High cholesterol History of stress test Neoplasm of skin of left cheek Seasonal allergies Smoker 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 Wears glasses Surgical History History of repair of laceration Family History Father Skin cancer Other Family history of skin cancer Lung cancer Social History Smoking Status: Current every day smoker tobacco type: cigarettes counseling given: provider counseling alcohol intake: never substance use type: does not use additional social history: Does Take Aspirin As Needed Does Take Ibuprofen As Needed HPI postop surgery 06/18/21 Details: Postop visit from his recent surgery on 06/18/21 where he underwent excision 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 Patient is having minimal pain. On exam, the incision and sutures are dry and intact. Patient has been keeping the incision covered because his clothes rub against the incision. Half of the sutures removed without difficulty. Pathology discussed with patient. It showed Basal cell carcinoma with focal area of ulceration, completely excised. Keep head elevated. Continue to place antibiotic ointment daily onto the incision line. Cover with gauze to prevent clothes collars from rubbing. Keep covered while working. He may return to work on with no restrictions. Follow up one week to have the remaining sutures removed. Coding Level of Care Code Global Post Op Diagnoses Skin lesion of neck L98.9 Other acute postprocedural pain G89.18 Family history of skin cancer Z80.8 Smoker F17.200 Basal cell carcinoma of left side of neck C44.41 Assessment and Plan (No Qualifiers) Assessment and Plan (1) Skin lesion of neck: Status: Acute (2) Other acute postprocedural pain: Status: Acute (3) Family history of skin cancer: Status: Chronic (4) Smoker: Status: Chronic (5) Basal cell carcinoma of left side of neck: Status: Acute Comment: Excised 06/18/21 06/28/21 1059 > Date Michelle Zapata NP [employer] Cosigner Signature: Date (if applicable) CC: Normal [facility] Discharge Instructionon 05-23 Discharge Instruction [facility] Medical Records Department [address] [place] [address] Instructions for Home/Discharge Instructions 06/18/21 1747 MR#: [id number] Acct: [id number] Name: ANA THIBODEAUX Rep #: [id number] : 1975 46 From: Bernabe Escalante MD PCP: Dr. Cayla Arthur MD Status:REG [facility] Discharge Instructions Diet Discharge Diet: No restrictions Activity Discharge Activity: May Drive (when not taking pain medication.), May Shower (in 2 days.) and - (keep head elevated. 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 Keep extremity elevated above heart level: - (elevate head.) Dressing / Incision Call your doctor if your incision/area has: Continuous Slow Oozing, Sudden Increased Bleeding, Increased Pain/ Swelling, Foul Smelling Discharge and Swelling at the incision site Call your doctor if you observe: Fever of 101 or Higher, Coldness, Increased Pain, Shortness of breath, Chest pain, Calf discomfort and Uncontrolled pain Suture Line Care: - (apply antibiotic ointment to the suture lines daily.) Change Dressing in: 2 days Cleanse incision/area with: - (may get incisions wet in the shower in 2 days.) Follow Up Care Please Follow Up With: Bernabe Escalante MD When: one week 06/26/21. calll [phone] for appt. Test Results: Test results from this visit will be discussed in further detail at your follow-up appointment, if applicable. Discharge Plan Admission Primary Reason for Your Visit: excision ulcerated baso-squamous cell carcinoma left posterolateral neck Attending Provider: Bernabe Escalante Primary Care Provider: Cayla Arthur Discharge Orders/Prescriptions Prescriptions: New clindamycin HCl [Cleocin HCl] 300 mg capsule 300 mg PO TID Qty: 12 RF: 0 oxycodone-acetaminophe n [Percocet] 5-325 mg tablet 1 tab PO Q6H PRN (Reason: pain (scale score 7-10)) 7 Days Qty: 28 RF: 0 Continued dextroamphetamine-amph etamine 25 mg capsule,extended release 24hr 25 cap PO DAILY RF: 0 pravastatin 40 mg tablet 40 mg PO QHS RF: 0 clonidine HCl 0.2 mg tablet 0.2 mg PO DAILY RF: 0 Referrals / Follow Up: Cayla Arthur MD [Primary Care Provider] - Disposition Disposition (needs filled in before D/C Order can be placed): Home, Self Care 06/18/21 1806 Bernabe Escalante MD CC: Dr. Cayla Arthur MD Signed Normal [facility] Operative Reporton 2 Operative Report [facility] Medical Records Department [address] [place] [address] Operative Report 06/18/21 1718 MR#: [id number] Acct: [id number] Name: ANA THIBODEAUX Rep #: [id number] : 1975 46 From: Bernabe Escalante MD PCP: Dr. 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 2 cm ulcerated baso-squamous cell carcinoma left posterolateral neck. 2. 2 mm darkly pigmented lesion left cheek. 3. Family history of skin cancer. 4. Smoker. Post-Operative Diagnosis: Same. 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 Description of Surgical Findings:: 46 year old man presents a lesion on his left posterolateral neck that has been increasing in size over the last several months and has become ulcerated. He denies trauma. He denies fever. He denies any drainage from this ulcerated lesion. The lesion was punch biopsied by Dr. Harley on 06/01/21. 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 Patient has a family history of skin cancer. He also has concerns about a small darkly pigmented lesion left cheek since it started to become darkly pigmented. He presents to day to discuss surgical options for treatment. Patient was informed of the risks and complications of the procedure including alternatives to surgery. These were discussed with the patient personally. Patient voices understanding and wishes to proceed. Some of the risks and complications were included in a form from the [employer]. Encouraged patient to stop smoking as it may have deleterious effects on wound healing. Patient wants to continue observation of the small pigmented lesion left cheek. Patient states he has had blackheads that looked like the lesion in the past. 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 However, I stressed to the patient that any changes that occur in this lesion and we would proceed to the operating room for excision of this changing pigmented lesion and send it to Pathology for analysis to rule out carcinoma. Patient voices understanding. Surgeon: Bernabe Escalante supervisor white sugar: Terri العراقي Type of Anesthesia: General Specimen's removed: Ulcerated baso-squamous cell carcinoma left posterolateral neck to Pathology. Drains: None. Estimated Blood Loss (mL): 10. Description of Procedure: Patient was taken to OR in supine position and was placed under general anesthesia. The left face and left neck areas were prepped and draped in the usual fashion. SCD's were placed for DVT prophylaxis. Perioperative antibiotics were given intravenously. Using xylocaine with epinephrine, the lesion was infiltrated. After waiting 5 minutes for the anesthetic to take effect, the ulcerated baso-squamous cell carcinoma left posterolateral neck was excised in a rhomboid fashion down into the subcutaneous tissue at the level of the underlying muscle. A suture was marked at 12 oclock position for pathology orientation. The lesion was then sent to Pathology for analysis to rule out carcinoma at the margins. The carcinoma was 2 cm and ulcerated, so I used a 1 cm margin in all directions thus making it a 4 cm excision. I designed a rhomboid flap anterior and inferior to the wound defect. Incisions were made and the rhomboid flap was elevated on a subcutaneous pedicle down to the muscle. The flap was transposed into the defect with minimal tension and minimal distortion. Hemostasis was obtained with electrocautery. After transposing the flap into the defect, I closed the flap in a layered fashion with 5-0 Monocryl for the deep dermis and subcutaneous tissue. The skin was approximated with 4-0 Prolene simple interrupted sutures. Antibiotic ointment was applied to the suture line followed by a 4x4 gauze dressing. Patient tolerated the procedure well and was sent to PACU in satisfactory condition. Patient will be sent home on antibiotics and pain medication. He will keep his head elevated during the initial postoperative period. Patient will followup in a week for a wound check and for discussion of the pathology report. Will remove half the sutures from the incision at that first visit and will remove the remaining sutures at the next 1-2 visits. Grafts/Implants Used: None. Complications None. Admit VTE Documentation VTE Present on Admission: No VTE Mechan Device Prophylaxis: SCD's VTE Pharm Prophylaxis ordered?: No Addendum Addendum: Surgery Charges CPT - 70191 ICD-10 - C44.42, D49.2, Z80.8, F17.200 06/20/21 8256 Cosigner Signature (if applic (more content not included)... Normal [facility] Surgery Specimen Level Sushma 06-18-2021 Surgery Specimen Level IV OPERATION: Excision ulcerated basosquamous cell cancer posterolateral PRE-OP DIAGNOSIS: 1.6 cm ulcerated basosquamous cell cancer TISSUE SUBMITTED: Left neck ulcerated basosquamous cell cancer, suture at 12 o???clock ---- Left neck ulcerated basosquamous cell cancer, excisional biopsy: Basal cell carcinoma with focal area of ulceration, completely excised. See comment. ETELVINA:gillian 06/20/2021 The tumor measures up to 1.4 cm in greatest width. Please make reference to previous specimen ([id number]) skin lesion, left lateral neck, punch biopsy with diagnosis of ???consistent with invasive basosquamous cell carcinoma, ulcerated.??? Case has been reviewed in consultation with Dr. Ortiz who concurs with the above diagnosis. IDC:AM Slides are reviewed. Received in fixative is one container labeled with the patient's name and designated left neck ulcerated basosquamous cell cancer, suture at 12 o'clock. The specimen consists of a rosita-shaped piece of serrano-light brown skin measuring 3.7 x 3.5 cm and up to 0.5 cm in thickness. The specimen is inked as follows: 12 to 3 o'clock - green, 3 to 6 o'clock - blue, 6 to 9 o'clock - black, 9 to 12 o'clock - yellow and deep margin - red. The skin surface shows an ulcerated lesion measuring 1 cm in greatest dimension. The specimen is serially sectioned and submitted entirely in four cassettes. / ETELVINA:gillian 06/19/2021 TC:0 CPT: 87847 ---- Signed (signature on file) Dr. Lacho Jones MD 06/20/21 1233 ---- Normal [facility] Comment on above: Performed By: #### P SUIV #### [facility] [address] [place], [place], [address] COVID 19 AG RAPID ([facility] T)on 06-15-2021 SARS-CoV-2 (COVID-19) RNA BRENDA+probe Ql (Unsp spec) *Negative results from patients with symptom onset beyond five days should be treated as presumptive and confirmed by a molecular assay if clinically necessary. Negative results should not be used as the sole basis for treatment or for patient management. SARS-CoV-2 Ag Resp Ql IA.rapid *Positive results do not differentiate between SARS-CoV and SARS-CoV-2. If differentation of the specific SARS virus is desired an additional sample and an additional order is required. SARS-CoV-2 Ag Resp Ql IA.rapid * This test has not been FDA cleared or approved; the test has been authorized by FDA under an Emergency Use Authorization (EAU) for use by laboratories certified under CLIA that meet the requirements to perform moderate, high, or waived complexity tests. SARS-CoV-2 Ag Resp Ql IA.rapid Normal Reference Range: Negative SARS-CoV-2 (COVID 19) Negative RAPID METHOD Quidel Fawn Analyzer PAYAM Normal [facility] Comment on above: Performed By: #### M 100.505 #### [facility] [address] [place], [place], [id number] Plastic Surgery Visit Report on 06-11-2021 Plastic Surgery Visit Report [facility] [address] [place], [place] [address] OFFICE VISIT Date of Service: 06/11/21 MR#: [id number] Acct: [id number] Name: ANA THIBODEAUX Rep #: [id number] : 1975 Provider: Dr. 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 Accompanied by: None Is patient in pain?: No Allergies No Known Allergies Allergy (Verified 06/11/21 16:18) Medications ammonium lactate 12 % topical cream gm TOPICAL 06/01/21 [History Confirmed 06/11/21] clonidine HCl 0.2 mg tablet 0.2 mg PO DAILY tab 06/01/21 [History Confirmed 06/11/21] dextroamphetamine-amph etamine ER 25 mg 24hr capsule,extend release cap PO DAILY cap 06/01/21 [History Confirmed 06/11/21] methylphenidate HCl 5 mg tablet 5 mg PO DAILY PRN tab 06/01/21 [History Confirmed 06/11/21] pravastatin 40 mg tablet 40 mg PO QHS tab 06/01/21 [History Confirmed 06/11/21] PFSH Medical History Family history of skin cancer Seasonal allergies Smoker 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 Surgical History History of repair of laceration Family History Father Skin cancer Other Family history of skin cancer Lung cancer Social History Smoking Status: Current every day smoker counseling given: provider counseling alcohol intake: never substance use type: does not use additional social history: Does Take Aspirin As Needed Does Take Ibuprofen As Needed HPI evaluation ulcerated baso-squamous cell carcinoma left posterolateral neck Details: HISTORY OF PRESENT ILLNESS 46 year old man presents a lesion on his left posterolateral neck that has been increasing in size over the last several months and has become ulcerated. He denies trauma. He denies fever. He denies any drainage from this ulcerated lesion. The lesion was punch biopsied by Dr. Harley on 06/01/21. 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 Patient has a family history of skin cancer. He also has concerns about a small darkly pigmented lesion left cheek since it started to become darkly pigmented. He presents to day for further evaluation and to discuss surgical options for treatment. REVIEW OF SYSTEMS General - Denies fever, fatigue, and weight loss. Eyes - Denies cataracts and glaucoma. ENT - Denies nasal congestion and sore throat. Endocrine - Denies excessive thirst and urination. Skin - Has ulcerated lesion left posterolateral neck that was recently punch biopsied on 06/01/21 and showed invasive baso-squamous cell carcinoma, ulcerated. Family history of skin cancer. Has darkly pigmented lesion left cheek. Musculoskeletal - Denies joint pain, joint stiffness, weakness of muscles and joints, back pain, and arthritis. Neuro - Denies headaches. Cardiovascular - Denies chest pain, fatigue, and shortness of breath with exertion. Psych - Denies anxiety and depression. Respiratory - Denies chronic cough and shortness of breath. Patient is a smoker. Gastrointestinal - Denies nausea, vomiting, diarrhea, and constipation. Hematologic - Denies abnormal bruising and bleeding. Genitourinary - Denies hematuria and urinary frequency. PHYSICAL EXAMINATION General - Alert and Oriented. HEENT - PERRL. EOMI. Throat is clear. On his left cheek there is a small darkly pigmented lesion. Measures 2 mm. Lesion is flat. Has regular borders. No ulceration. Lesion is nontender. No other suspicious lesions noted. Neck - Supple and nontender. No cervical adenopathy. On the left posterolateral neck is an ulcerated lesion that measures 1.6 x 1.3 cm. There is some nodularity at the edges. Has irregular borders. Lesion is nontender. No other suspicious lesions noted. Lungs - Clear to auscultation. Heart - Regular rate and rhythm. Abdomen - Soft and nondistended. Extremities - FROM. No axillary adenopathy. Radial pulses are palpable. No suspicious lesions noted. Neuro - CN II-XII grossly intact. Psych - Normal mood and affect. ASSESSMENT 1. 1.6 cm ulcerated baso-squamous cell carcinoma. 2. 2 mm darkly pigmented lesion left cheek. 3. Family history of skin cancer. 4. Smoker. PLAN Pathology reviewed. (more content not included)... Normal [facility] CD10 (initial)on 06-01-2021 CD10 (initial) PHYSICIAN JACQUI Madden [facility] [address] [place], [place] [address] SPECIMEN INFORMATION: Tissue Source: Left lateral neck skin lesion Clinical Info: Left lateral neck skin lesion Specimen Number: [id number] CPT code: 44428, 22986 x4 METHODOLOGY: Deparaffinized sections of prefer/formalin-fixed tissue or PAP/DQ stained slides are incubated with monoclonal/polyclonal antibodies/oligonucleo tide probes. Localization is made via biotin free immunoperoxidase method. Appropriate controls are performed and reacted as expected. Results on target cell population are indicated in the following table: RESULTS: ANTIBODY / CLONE RESULT CD10 (56C6) negative BCL-2 (bcl-2/100/D5) positive, dim P40 (BC28) positive 34BE12 (34BE12) positive P53 (DO-7) positive, rare These tests were developed and their performance characteristics determined by [facility]. They may not have been cleared or approved by the U.S. Food and Drug Administration. The FDA has determined that such clearance or approval is not necessary. The above immunohistochemical/du alISH markers are ordered and reviewed by the Pathologist. INTERPRETATION: Left lateral neck skin lesion, punch biopsy: Consistent with basosquamous carcinoma. AM:gillian 06/06/2021 Signed (signature on file) Dr. Siva Ortiz, 06/06/21 1327 ---- Normal [facility] Comment on above: Performed By: #### P CD10 #### [facility] [address] [place], [address] Surgery Specimen Level Sushma 06-01-2021 Surgery Specimen Level IV OPERATION: Punch biopsy skin lesion left lateral neck PRE-OP DIAGNOSIS: Left lateral neck skin lesion TISSUE SUBMITTED: Left lateral neck skin lesion ---- Skin lesion left lateral neck, punch biopsy: Consistent with invasive baso-squamous cell carcinoma, ulcerated. See comment. AM:gillian 06/05/2021 Immunohistochemistry ([id number]) supports the above diagnosis. Complete excision of lesion is recommended for definitive classification. Slides are reviewed. Received in fixative is one container labeled with the patient's name and designated skin lesion biopsy left neck. The specimen consists of a punch biopsy of serrano-white skin measuring 0.5 cm in diameter and 0.4 cm in length. The entire specimen is submitted in one cassette. / SJ:gillian 06/04/2021 TC:0 CPT: 23837 ---- Signed (signature on file) Dr. Siva Ortiz, DO 06/06/21 1255 ---- [facility] Comment on above: Performed By: #### P SUIV #### [facility] [address] [place], [address] Surgery Visit Reporton 06-01 Surgery Visit Report [facility] [address] [place] [address] OFFICE VISIT Date of Service: 06/01/21 MR#: [id number] Acct: [id number] Name: ANA THIBODEAUX Rep #: [id number] : 1975 Provider: Dr. 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 Is patient in pain?: No Allergies No Known Allergies Allergy (Unverified 06/01/21 14:09) Medications ammonium lactate 12 % topical cream gm TOPICAL 06/01/21 [History Confirmed 06/01/21] clonidine HCl 0.2 mg tablet 0.2 mg PO DAILY tab 06/01/21 [History Confirmed 06/01/21] dextroamphetamine-amph etamine ER 25 mg 24hr capsule,extend release cap PO DAILY cap 06/01/21 [History Confirmed 06/01/21] methylphenidate HCl 5 mg tablet 5 mg PO DAILY PRN tab 06/01/21 [History Confirmed 06/01/21] pravastatin 40 mg tablet 40 mg PO QHS tab 06/01/21 [History Confirmed 06/01/21] PFSH Surgical History (Updated 06/01/21 @ 14:06 by Hyun Weiss) History of repair of laceration Family History (Updated 06/01/21 @ 14:06 by Hyun Weiss) Father Skin cancer Social History (Updated 06/01/21 @ 14:06 by Hyun Weiss) Smoking Status: Current every day smoker HPI HPI HPI: ANA THIBODEAUX, is a 46 M who presents to the office today for left neck skin lesion. The patient has a skin lesion which is present on the left side of his neck. He reports has been there for about a year. It is not healing well and he is worried about this and would like it removed. ROS General General: No weight change, appetite, fatigue, colon cancer, breast cancer or weakness HEENT HEENT: No difficulty swallowing, eye injury, eye surgery, swollen glands or hoarseness Endo Endocrine: No thyroid disease, diabetes mellitus, thyroid cancer, Hair loss, heat intolerance or cold intolerance Skin Skin: Yes rash and changing moles Additional Details: Dime size open seeping area left neck Breast Breast: No left breast lump, right breast lump, nipple discharge, breast pain, abnormal mammogram, abnormal US or breast enlargement Musc Musculoskeletal: No back problems, arthritis, rheumatoid arthritis, gout or joint pain Cardio Cardiovascular: No murmur, pacemaker, heart disease, atrial fibrillation, high blood pressure, heart attack, heart stent, palpitations, shortness of breat with exertion or chest pain Psych Psychiatric: No depression, anxiety or hearing voices Resp Respiratory: No shortness of breath, No sleep apnea, No cough, No COPD, No asthma, No emphysema and No wheezing Gastro Gastrointestinal: No abdominal pain, No nausea or vomiting, No diarrhea, No constipation, No blood in stool, No acid reflux, No hemorrhoids, No ulcers, No gallbladder problem and No black,tarry stools Luca Hematologic: No blood thinners, No blood disorders, No bleeding, No anemia and No blood clots Neuro Neurologic: No system reviewed and no additional complaints, except as documented, No as per HPI, No abnormal gait, No abnormal hearing, No abnormal movements, No abnormal speech, No behavioral changes, No burning sensations, No confusion, No convulsions, No disequilibrium, No dizziness, No localized weakness, No frequent falls, No headache(s), No lack of coordination, No loss of vision, No memory loss, No numbness, No other visual disturbances, No radicular pain, No restless legs, No sensory deficit, No syncope, No tingling, No tremor(s), No weakness and No other Exam Const General: cooperative Orientation: alert and oriented x3 HENMT Head: normal to inspection Neck Neck: normal visual inspection and full ROM Chest Chest palpation inspection: normal inspection of the chest Resp Effort Inspection: normal respiratory effort Auscultation: clear to auscultation bilaterally Cardio Rate: regular rate Rhythm: regular rhythm GI Inspection: non-distended Palpation: soft and nontender Skin Other: Lesion of the left neck. It is circular and approximately 1.5 cm in diameter. It is ulcerated. Neuro General: patient alert and patient oriented x3 Extrem General: full ROM Psych Appearance: grossly normal Mental Status: mental status grossly normal Office Procedures Biopsy Provider Documentation The left neck was prepped and draped in usual sterile fashion. The skin lesion was injected with local anesthetic and then a 5 punch biopsy was used to biopsy the skin. A 3-0 chromic suture was used to close t (more content not included)... Normal [facility] Stress Reporton 01-03-2021 Stress Report [facility] [address] [place] [address] MR#: [id number] Acct: [id number] Name: ANA THIBODEAUX Rep #: [id number] : 1975 45 From: Jun Hardy MD Primary Care: Dr. Cayla Arthur MD Status: R EG REF Referring Dr: Sex: M C Stress Test Report Exercise stress test. 45-year-old man with no cardiac history for preemployment physical. Resting EKG demonstrates normal sinus rhythm with a rate of 78 bpm normal intervals are noted resting blood pressure is 114/76 mmHg. The patient exercised according to regular Jorge protocol for 10 minutes and 15 seconds patient completed 1 minute and 15 seconds to stage IV of the Jorge protocol. The maximum heart rate attained was 144 bpm which was 83% of max impact her heart rate the maximum workload was 13.4 metabolic equivalents. At rest there were no ST or T wave changes noted to suggest ischemia and at peak exercise upsloping ST changes were noted with did not meet the criteria for ischemia. No clinical angina was noted the test was terminated due to completion of the protocol. The peak blood pressure was 170/80 mmHg with a rate-pressure product 23,290. Good blood pressure response to exercise was noted. No arrhythmias were noted. Conclusion: Normal exercise stress test capacity with no evidence of ischemia. Excellent functional capacity. 01/03/21 1306 Date Jun Hardy MD CC: Dr. Cayla Arthur MD; Dr. Ap Alvarez MD Date Dictated: 01/03/211304 Date Transcribed: 01/03/211304 [employer]: [place] Signed [facility] CT BRAIN WO IVCONon 04-01-[address] BRAIN WO IVCON * * *Final Report* * *DATE OF EXAM: Apr 01 2017 9:40AM [facility] 0504 - CT BRAIN WO IVCON / REASON: contusion back of head, heaache, hematoma? * * * * Physician Interpretation * * * * EXAMINATION: CT BRAIN WITHOUT CONTRASTCLINICAL HISTORY: Contusion back of head. HeadacheTECHNIQUE: Routine CT scan of the brain without contrast. Serial axial unenhanced images were obtained from the vertex to the foramen magnum.M: [id number]_2CT Dose-Length Product (DLP): 638 mGy*cmCT Dose Reduction Employed: No dose reduction techniques were requiredCOMPARISON: None.RESULT:Post-opera tive change: None.Acute change: No evidence of an acute infarct or other acute parenchymal process.Hemorrhage: No evidence of acute intracranial hemorrhage.Mass effect / Mass lesion: There is no evidence of an intracranial mass or extraaxial fluid collection. No significant mass effect.Chronic change: None apparent.Ventricles: The ventricles are within normal limits of size and configuration for age.Paranasal sinuses and skull base: The visualized paranasal sinuses are clear. The skull base and imaged soft tissues are unremarkable.IMPRESSIO N:NORMAL BRAIN. NO EVIDENCE OF AN ACUTE INTRACRANIAL PROCESS.Transcriptioni st: PSCB Transcribe Date/Time: Apr 01 2017 9:56ADictated by : BERNABE STEINER MDThis examination was interpreted and the report reviewed and electronically signed by: BERNABE STEINER MD on Apr 01 2017 9:57AM [id number] ACN [facility] XR CERVICAL 2V AP/LATon XR CERVICAL 2V AP/LAT * * *Final Report* * *DATE OF EXAM: Apr 01 2017 10:01AM MDX 5308 - XR CERVICAL 2V AP/LAT / REASON: contusion back of head, heaache, hematoma? strain and contusions * * * * Physician Interpretation * * * * HISTORY: contusion back of head, heaache, hematoma? strain and contusionsTECHNIQUE: XR CERVICAL 2V AP/LAT, XR LUMBAR 2V AP/LATCOMPARISON: NoneRESULT:Cervical spine:Cervical vertebral body heights and alignment are maintained. There is no prevertebral soft tissue swelling. Disc space heights are preserved.Lumbar spine:5 nonrib-bearing lumbar vertebra. General body heights and alignment are maintained. Disc space heights are well-maintained. The joints are preserved.IMPRESSION:N O EVIDENCE OF CERVICAL OR LUMBAR SPINE FRACTURETranscriptioni st: PSCB Transcribe Date/Time: Apr 01 2017 10:07ADictated by : UDAY BENOIT MDThis examination was interpreted and the report reviewed and electronically signed by: UDAY BENOIT MD on Apr 01 2017 10:08AM [id number] [facility] XR LUMBAR 2V AP/LATon 2017 XR LUMBAR 2V AP/LAT * * *Final Report* * *DATE OF EXAM: Apr 01 2017 10:01AM MDX 5229 - XR LUMBAR 2V AP/LAT / REASON: contusion back of head, heaache, hematoma? strain and contusions * * * * Physician Interpretation * * * * HISTORY: contusion back of head, heaache, hematoma? strain and contusionsTECHNIQUE: XR CERVICAL 2V AP/LAT, XR LUMBAR 2V AP/LATCOMPARISON: NoneRESULT:Cervical spine:Cervical vertebral body heights and alignment are maintained. There is no prevertebral soft tissue swelling. Disc space heights are preserved.Lumbar spine:5 nonrib-bearing lumbar vertebra. General body heights and alignment are maintained. Disc space heights are well-maintained. The joints are preserved.IMPRESSION:N O EVIDENCE OF CERVICAL OR LUMBAR SPINE FRACTURETranscriptioni st: PSCB Transcribe Date/Time: Apr 01 2017 10:07ADictated by : UDAY BENOIT MDThinayana examination was interpreted and the report reviewed and electronically signed by: UDAY BENOIT MD on Apr 01 2017 10:08AM [id number] [facility] XR SHOULDER 2V AP/TRUE AP RT on 04-01-2017 XR SHOULDER 2V AP/TRUE AP RT * * *Final Report* * *DATE OF EXAM: Apr 01 2017 10:01AM MDX 5255 - XR SHOULDER 2V AP/TRUE AP RT / REASON: contusion back of head, heaache, hematoma? strain and contusions * * * * Physician Interpretation * * * * HISTORY: contusion back of head, heaache, hematoma? strain and contusionsTECHNIQUE: XR SHOULDER 2V AP/TRUE AP RTCOMPARISON: NoneRESULT:There is no acute fracture, dislocation, joint space abnormality, or soft tissue process identified.IMPRESSION: NO ACUTE FRACTURETranscriptioni st: PSCB Transcribe Date/Time: Apr 01 2017 10:06ADictated by : UDAY BENOIT MDThis examination was interpreted and the report reviewed and electronically signed by: UDAY BENOIT MD on Apr 01 2017 10:07AM [id number] [facility] Vital Signs Date Time Vital Sign Value Performing Clinician Faci lity 06-18-2021 18:43-0400 Body temperature 98.3 [degF] Dr. Cayla Arthur Work Phone: [facility] Work Phone: 06-18-2021 18:43-0400 Diastolic blood pressure 88 mm[Hg] Dr. Cayla Arthur Work Phone: [facility] Work Phone: 06-18-2021 18:43-0400 Heart rate 79 /min Dr. Cayla Arthur Work Phone: [facility] Work Phone: 06-18-2021 18:43-0400 Respiratory rate 16 /min Dr. Cayla Arthur Work Phone: [facility] Work Phone: 06-18-2021 18:43-0400 SaO2% (BldA) [Mass fraction] 93 % Dr. Cayla Arthur Work Phone: [facility] Work Phone: 06-18-2021 18:43-0400 Systolic blood pressure 137 mm[Hg] Dr. Cayla Arthur Work Phone: [facility] Work Phone: 06-18-2021 13:26-0400 Body height 180.[address] Cayla Arthur Work Phone: [facility] Work Phone: 06-18-2021 13:26-0400 Body mass index (BMI) [Ratio] 24 kg/m2 Dr. Cayla Arthur Work Phone: [facility] Work Phone: 06-18-2021 13:26-0400 Body weight [address] Cayla Arthur Work Phone: [facility] Work Phone: 06-11-2021 16:16-0400 Body mass index (BMI) [Ratio] 27.8 kg/m2 Dr. Cayla Arthur Work Phone: [facility] Work Phone: 06-11-2021 16:16-0400 Body temperature 98.7 [degF] Dr. Cayla Arthur Work Phone: [facility] Work Phone: 06-11-2021 16:16-0400 Body weight 90.[address] Cayla Arthur Work Phone: [facility] Work Phone: 06-11-2021 16:16-0400 Diastolic blood pressure 81 mm[Hg] Dr. Cayla Arthur Work Phone: [facility] Work Phone: 06-11-2021 16:16-0400 Heart rate 94 /min Dr. Cayla Arthur Work Phone: [facility] Work Phone: 06-11-2021 16:16-0400 Respiratory rate 18 /min Dr. Cayla Arthur Work Phone: [facility] Work Phone: 06-11-2021 16:16-0400 SaO2% (BldA) [Mass fraction] 93 % Dr. Cayla Arthur Work Phone: [facility] Work Phone: 06-11-2021 16:16-0400 Systolic blood pressure 146 mm[Hg] Dr. Cayla Arthur Work Phone: [facility] Work Phone: 06-01-2021 13:08-0500 Body mass index (BMI) [Ratio] 24.4 kg/m2 Dr. Cayla Arthur Work Phone: [facility] Work Phone: 06-01-2021 13:08-0500 Body temperature 97.6 [degF] Dr. Cayla Arthur Work Phone: [facility] Work Phone: 06-01-2021 13:08-0500 Body weight 79.[address] Cayla Arthur Work Phone: [facility] Work Phone: 06-01-2021 13:08-0500 Diastolic blood pressure 79 mm[Hg] Dr. Cayla Arthur Work Phone: [facility] Work Phone: 06-01-2021 13:08-0500 Heart rate 94 /min Dr. Cayla Arthur Work Phone: [facility] Work Phone: 06-01-2021 13:08-0500 Respiratory rate 18 /min Dr. Cayla Arthur Work Phone: [facility] Work Phone: 06-01-2021 13:08-0500 SaO2% (BldA) [Mass fraction] 97 % Dr. Cayla Arthur Work Phone: [facility] Work Phone: 06-01-2021 13:08-0500 Systolic blood pressure 121 mm[Hg] Dr. Cayla Arthur Work Phone: [facility] Work Phone: Encounters Encounter Date Encounter Type Care Provider Facility Start: 02-13-2024 End: 02-16-2024 Subsequent hospital visit by physician Xr [facility] Work Phone: [facility] Comment on above: Screening for condit ion [Z13.9] Screening for condit ion (Primary Dx) Start: 02-13-2024 End: 02-13-2024 ambulatory CAYLA ARTHUR Facility:[id number] Start: 06-18-2021 End: 06-18-2021 Admission to same day surgery center Dr. Cayla Arthur Work Phone: [facility] Start: 06-11-2021 End: 06-11-[address] Cayla Arthur Work Phone: [facility] Start: 06-01-2021 End: 06-01-[address] Cayla Arthur Work Phone: [facility]-Laboratory, Specimen Start: 06-01-2021 End: 06-01-[address] Cayla Arthur Work Phone: [facility] Start: 04-01-2017 Ambulatory [facility]EL[facility] ([facility]) [facility] Procedures Date Procedure Procedure Detail Performing Clinician Start: 02-13-2024 Radiologic exam ches t 2 views Jann Gary APRN.GAME ENGINEER Work Phone: Start: 02-13-2024 Lipid 1996 panel - S china or Plasma [facility] Work Phone: Start: 06-18-[address] Cayla Singh [facility] Work Phone: Start: 06-15-2021 End: 06-15-[address] Cayla Arthur Work Phone: Plan of Treatment Date Care Activity Detail Author Start: 01-05-2034 Urine microalbumin profile DTaP,Tdap,Td Vaccine (3 - Td or Tdap) [facility] Start: 02-12-2029 Lipid panel Lipid Screening [facility] Start: 03-02-2024 Shingrix Vaccine (2 of 2) Shingrix Vaccine (2 of 2) [facility] Start: 11-23-2023 Covid-19 Vaccine ( season) Covid-19 Vaccine ( season) [facility] Start: 11-23-2023 Influenza vaccination Influenza Vacc ine (#1) [facility] Start: 2018 Diabetes Screening Diabetes Screenin g [facility] Start: 2018 Screening for malign ant neoplasm of colon [facility] Start: 1992 Hepatitis B Vaccine (1 of 3 - 19+ 3-dose series) Hepatitis B Vaccine (1 of 3 - 19+ 3-dose series) [facility] Start: 1991 Anxiety Screening Anxiety Screening [facility] Start: 1991 Depression Screening Depression Scre ening [facility] Start: 1991 Hepatitis C screening Hepatitis C Sc reening [facility] Start: 1991 HIV screening HIV Screening [facility] End: 02-12-2025 EXERCISE STRESS ECG (WITHOUT IMAGING) EXERCISE STRESS ECG (WITHOUT IMAGING) Cardiology Routine Screening for condition 1 Occurrences starting 02/13/2024 until 02/12/2025 [facility] Work Phone: Comment on above: 1 Occurrences starti ng 02/13/2024 until 02/12/2025 Patient referral [facility] Work Phone: Immunizations Immunization Date Immunization Notes Care Provider Jessica saenz 03-01-2014 influenza virus vacc ine, unspecified formulation [facility] Work Phone: [facility] Payers Date Payer Category Payer Unknown [facility] [id number] 2017-Present [phone] [address] [place], [place] [address] [id number] Private Health Insurance [employer] [id number] Self-pay SEL[employer]Y INSURANCE [id number] Unknown S[employer] [id number] Social History Date Type Detail Facility Start: 06-14-2021 Tobacco smoking stat [facility] Unknown if ever smoked [facility] Work Phone: Start: 1975 Sex Assigned At Male W [facility] Work Phone: Start: 03-01-2020 History of Social function [facility] Start: 03-01-2020 Area Deprivation Index [facility] National Score (1-10 0), lower number is lower risk Not on file [facility] Start: 1975 Sex assigned at Not on file [facility] Mental Status Date Assessment Result Facility 06-18-2021 Cognitive function Voice/Name;Touch/Shaki ng [facility] Work Phone: Progress note 02-16-2024 Note Date & Type Note Facility 02-16-2024 Note HNO ID: [id number] Author: NEDRA MCKEON MD Service: ? Author Type: Physician Type: Progress Notes Filed: 02/16/2024 11:17 Note Text: Exercise Stress Test 02/13/2024 Indication - employment cardiac screening Baseline ECG - normal sinus rhythm, heart rate 73/min, BP 128/80 mmHg. The patient was exercised according to the Jorge protocol. He performed stage by stage up till, 2 minutes and 59 seconds of stage 4, with a total exercise time of 11 min and 59 seconds, [place] [address] mmHg/min and estimated workload of 13.4 METS (ACSM equation 12.1 METS, FRIEND equation 10.5 METS, 4.2 mph at 16% grade). Test was terminated due to fatigue (no reported symptoms). The patient did not develop chest pain during exercise. The ECG did not show any ST-T changes. Occasional PVCs during stage 4 of exercise. The resting Heart Rate was 73 bpm. There was an appropriate Heart Rate response during exercise with the Heart Rate increasing to 155 bpm at peak exercise, representing 91% of maximum age predicted Heart Rate. Normal blood pressure response. Peak BP 170/74 mmHg. Normal heart rate recovery. Davila treadmill score 11, normal. Overall, normal exercise stress test. Sincerely, Nedra Mckeon MD MPH [facility] History of Present illness Narrative 02-16-2024 Nedra Mckeon MD - 02/16/2024 10:06 AM EST Note Date & Type Note Facility 02-16-2024 History of Presen t illness Narrative Exercise Stress Test 02/13/2024 Indication - employment cardiac screening Baseline ECG - normal sinus rhythm, heart rate 73/min, BP 128/80 mmHg. The patient was exercised according to the Jorge protocol. He performed stage by stage up till, 2 minutes and 59 seconds of stage 4, with a total exercise time of 11 min and 59 seconds, [place] [address] mmHg/min and estimated workload of 13.4 METS (ACSM equation 12.1 METS, FRIEND equation 10.5 METS, 4.2 mph at 16% grade). Test was terminated due to fatigue (no reported symptoms). The patient did not develop chest pain during exercise. The ECG did not show any ST-T changes. Occasional PVCs during stage 4 of exercise. The resting Heart Rate was 73 bpm. There was an appropriate Heart Rate response during exercise with the Heart Rate increasing to 155 bpm at peak exercise, representing 91% of maximum age predicted Heart Rate. Normal blood pressure response. Peak BP 170/74 mmHg. Normal heart rate recovery. Davila treadmill score 11, normal. Overall, normal exercise stress test. Sincerely, Nedra Mckeon MD MPH documented in this encounter [facility] History of Present illness Narrative 02-13-2024 Yuliya Patel RT(R) - 02/13/2024 8:40 AM EST Note Date & Type Note Facility 02-13-2024 History of Presen t illness Narrative Radiology Service Progress Note PATIENT NAME: Ana Thibodeaux DATE OF SERVICE: February 13, 2024 TIME: 9:07 AM PATIENT IDENTITY VERIFICATION COMPLETED USING TWO (2) IDENTIFIERS: Name and Date of confirmed by patient verbally. FALL SCREENING: Has the patient had 2 falls in the last year or 1 fall with injury or currently using an Ambulatory Assistive Device (Walker, Cane, Wheelchair, Crutches, etc.)? No PATIENT GENDER DATA: Male PATIENT RELEVANT IMPLANT DATA REVIEWED: Not Applicable PATIENT PRESENTS WITH AN IMPLANTABLE OR ATTACHED COLLEGE TEACHER: No RADIOLOGY DEPARTMENT: General X-ray: Exam(s) Completed: Chest X-Ray PERIPHERAL IV DATA: Not applicable SIGNED BY: MO Schmid) February 13, 2024 9:07 AM documented in this encounter [facility] Progress note 02-13-2024 Note Date & Type Note Facility 02-13-2024 Note HNO ID: [id number] Author: YULIYA PATEL RT(R) Service: Radiology Author Type: Technologist Type: Progress Notes Filed: 02/13/2024 09:07 Note Text: Radiology Service Progress Note PATIENT NAME: Ana Thibodeaux DATE OF SERVICE: February 13, 2024 TIME: 9:07 AM PATIENT IDENTITY VERIFICATION COMPLETED USING TWO (2) IDENTIFIERS: Name and Date of confirmed by patient verbally. FALL SCREENING: Has the patient had 2 falls in the last year or 1 fall with injury or currently using an Ambulatory Assistive Device (Walker, Cane, Wheelchair, Crutches, etc.)? No PATIENT GENDER DATA: Male PATIENT RELEVANT IMPLANT DATA REVIEWED: Not Applicable PATIENT PRESENTS WITH AN IMPLANTABLE OR ATTACHED COLLEGE TEACHER: No RADIOLOGY DEPARTMENT: General X-ray: Exam(s) Completed: Chest X-Ray PERIPHERAL IV DATA: Not applicable SIGNED BY: RT Binu(Bhavesh) February 13, 2024 9:07 AM [facility] Clinical Note 06-18-2021 Note Date & Type Note Facility 06-18-2021 Note [facility] Medical Records Department [address] [place] [address] History Physical Exam 06/18/21 1052 MR#: [id number] Acct: [id number] Name: ANA THIBODEAUX Rep #: [id number] : 1975 46 From: Bernabe Escalante MD PCP: Dr. Cayla Arthur MD Status:[facility] Location: [facility] History and Physical Date of Admission: 06/18/21 HISTORY OF PRESENT ILLNESS 46 year old man presents a lesion on his left posterolateral neck that has been increasing in size over the last several months and has become ulcerated. He denies trauma. He denies fever. He denies any drainage from this ulcerated lesion. The lesion was punch biopsied by Dr. Harley on 06/01/21. 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 Patient has a family history of skin cancer. He also has concerns about a small darkly pigmented lesion left cheek since it started to become darkly pigmented. He presents to day for further evaluation and to discuss surgical options for treatment. PAST MEDICAL HISTORY Family history of skin cancer Seasonal allergies Smoker 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 PAST SURGICAL HISTORY History of repair of laceration ALLERGIES No Known Allergies MEDICATIONS ammonium lactate topical cream clonidine dextroamphetamine-amphetamine methylphenidate pravastatin FAMILY HISTORY Father Skin cancer Other Family history of skin cancer Lung cancer SOCIAL HISTORY Smoking Status: Current every day smoker counseling given: provider counseling alcohol intake: never substance use type: does not use REVIEW OF SYSTEMS General - Denies fever, fatigue, and weight loss. Eyes - Denies cataracts and glaucoma. ENT - Denies nasal congestion and sore throat. Endocrine - Denies excessive thirst and urination. Skin - Has ulcerated lesion left posterolateral neck that was recently punch biopsied on 06/01/21 and showed invasive baso-squamous cell carcinoma, ulcerated. Family history of skin cancer. Has darkly pigmented lesion left cheek. Musculoskeletal - Denies joint pain, joint stiffness, weakness of muscles and joints, back pain, and arthritis. Neuro - Denies headaches. Cardiovascular - Denies chest pain, fatigue, and shortness of breath with exertion. Psych - Denies anxiety and depression. Respiratory - Denies chronic cough and shortness of breath. Patient is a smoker. Gastrointestinal - Denies nausea, vomiting, diarrhea, and constipation. Hematologic - Denies abnormal bruising and bleeding. Genitourinary - Denies hematuria and urinary frequency. PHYSICAL EXAMINATION General - Alert and Oriented. HEENT - PERRL. EOMI. Throat is clear. On his left cheek there is a small darkly pigmented lesion. Measures 2 mm. Lesion is flat. Has regular borders. No ulceration. Lesion is nontender. No other suspicious lesions noted. Neck - Supple and nontender. No cervical adenopathy. On the left posterolateral neck is an ulcerated lesion that measures 2 x 1.3 cm. At his office visit last week on 06/11/21, the size of the lesion was 1.6 cm. There is some nodularity at the edges. Has irregular borders. Lesion is nontender. No other suspicious lesions noted. Lungs - Clear to auscultation. Heart - Regular rate and rhythm. Abdomen - Soft and nondistended. Extremities - FROM. No axillary adenopathy. Radial pulses are palpable. No suspicious lesions noted. Neuro - CN II-XII grossly intact. Psych - Normal mood and affect. ASSESSMENT 1. 2 cm ulcerated baso-squamous cell carcinoma left posterolateral neck. 2. 2 mm darkly pigmented lesion left cheek. 3. Family history of skin cancer. 4. Smoker. PLAN Pathology reviewed. A punch biopsy showed an invasive baso-squamous cell carcinoma, ulcerated. Medical records reviewed. Recommend to the patient to excise this recently diagnosed invasive ulcerated baso-squamous cell carcinoma and send it to Pathology for analysis to rule out carcinoma at the margins. Will excise with a margin of tissue in all directions. Reconstruction will be with a local skin flap versus skin grafting. The ulcerated baso-squamous cell carcinoma was 1.6 cm at his office visit on 06/11/21. On the day of surgery one week later, it had increased to 2 cm. The margin of tissue excised will be 1 cm in all directions. There is a small pigmented lesion on his left cheek that can be excised as well or can be closely monitored because of its small size (2 mm). If he chooses to just watch it, if there any changes to this lesion, then it will be excised at that time. He is thinking about proceeding with having it excised at the same time as the baso-squamous cell carcinoma for peace of mind because there is a family history of skin cancer. He will let me know the day of surgery. Surgery can be done on an outpatient basis under local anesthesia and IV sedation. Patient was informed of the risks and compli (more content not included)... [facility] Evaluation note Note Date & Type Note Facility Evaluation note Diagnosis Onset Date Skin lesion of neck acute Family history of skin cancer chronic Smoker chronic 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 chronic [facility] Work Phone: Evaluation note Note Date & Type Note Facility Evaluation note Diagnosis Screening for condition Screening for unspecified condition documented in this encounter [facility] Evaluation note Note Date & Type Note Facility Evaluation note Diagnosis Screening for condition- Primary Screening for unspecified condition Screening for condition Screening for unspecified condition documented in this encounter [facility] Reason for referral (narrative) Outpatient Procedure (Routine) - Pending Review Note Date & Type Note Facility Reason for referral (narrati ve) Specialty Diagnoses / Procedures Referred By Contac t Referred To [facility] Diagnoses Screening for condition Procedures EXERCISE STRESS ECG (WITHOUT IMAGING) CV STRS TST XERS&/OR RX CONT ECG TRCG ONLY Jann Gary APRN.CNP [address] [place] [address] [facility] [address] [place] [address] Referral ID Status Reason Start Date Expiration Date Visits Requested Visits Authorized [id number] Pending Review Auto-Generat ed Referral 4 02/12/2025 1 1 [facility] Summary Purpose Family History No Family History Records Found Relationship Condition Age at Onset Recorded Date/T angelique Not Specified Family history of ma lignant neoplasm of skin Unknown Malignant neoplasm of lung Unknown father Malignant neoplasm of skin Unknown Advance Directives No Advanced Directives Records Found Advance Directive Response Recorded Date/ Time Living Will No June 14, 2021 8:32am Power of Director Recreation No June 14 8:32am Chief Complaint and Reason for Visit Chief Complaint NECK CYST L LATERAL SKIN LESION Consult EXCISION BASAL CELL CARCINOMA, LT NECK Reason for Visit Skin lesion of neck Family history of skin cancer Smoker 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 Additional Source Comments (unrecognized sect ion and content) No Status Records FoundNo Status Records FoundNo Status Records FoundNo Status Records Found INFORMATION SOURCE (unrecogn ized section and content) DATE CREATED AUTHOR 09/16/2017 [facility] DATE CREATED AUTHOR AUTHOR'S ORGANIZ ATION 07/11/2021 [facility] DATE CREATED AUTHOR AUTHOR'S ORGANIZ ATION 02/17/2024 [facility] DATE CREATED AUTHOR AUTHOR'S ORGANIZ ATION 02/18/2024 [facility] Ce nter Goals (unrecognized section and content) Goals may be documented in a n alternate section Source Comments (unrecognize d section and content) In the event this informatio n is protected by the Federal Confidentiality of Alcohol and Drug Abuse Patient Records regulations: The Federal rules restrict any use of the information to criminally investigate or prosecute any alcohol or drug abuse patient.[facility] the event this information is protected by the Federal Confidentiality of Alcohol and Drug Abuse Patient Records regulations: The Federal rules restrict any use of the information to criminally investigate or prosecute any alcohol or drug abuse patient.[facility] Care Teams (unrecognized sec tion and content) Sales Associate Cashier Relationship Specialty Start Date End Date Cayla Arthur MD [address] [place] [address] PCP - General Family Medicine 04/01/17 Sales Associate Cashier Relationship Specialty Start Date End Date Cayla Arthur MD [address] [place] [address] PCP - General Family Medicine 04/01/17 FOR RECORDS PERTAINING TO PATIENTS WHO ARE OR HAVE BEEN ENROLLED IN A CHEMICAL DEPENDENCY/SUBSTANCEABUSE PROGRAM, SOME INFORMATION MAY BE OMITTED. This clinical summary was aggregated from multiple sources. Caution should be exercised in using it in the provision of clinical care. This summary normalizes information from multiple sources, and as a consequence, information in this document may materially change the coding, format and clinical context of patient data. In addition, data may be omitted in some cases. CLINICAL DECISIONS SHOULD BE BASED ON THE PRIMARY CLINICAL RECORDS. [facility] [employer] [facility]. provides no warranty or guarantee of the accuracy or completeness of information in this document.
== END 2024-12-24 22:28 | disposition home or self-care (01) ==
LOC: ED 22:11
PROVIDERS: Emergency Provider Emergency Medicine; PCP Family Medicine; Visit Provider Emergency Medicine
DX: B34.9 Viral infection, unspecified (principal); M54.9 Dorsalgia, unspecified; F98.8 Other specified behavioral and emotional disorders with onset usually occurring in childhood and adolescence; Z79.899 Other long term (current) drug therapy; F17.210 Nicotine dependence, cigarettes, uncomplicated
CPT/HCPCS: 90471; 96372; 99282